=== PATIENT | male | born 1995 | race Two or more races ===

== ENCOUNTER 2020-12-11 18:20 | Emergency (ER) | payer SELFPAY ==
[~2020-12-11] VITALS: Ht 180.3 cm; Wt 111.5 kg
[2020-12-11 18:49] VITALS: BP 155/100
== END 2020-12-11 22:16 | disposition left against medical advice (07) ==
LOC: ER 18:20
DX: S51.812A Laceration without foreign body of left forearm, initial encounter (principal); Z53.21 Procedure and treatment not carried out due to patient leaving prior to being seen by health care provider; W54.0XXA Bitten by dog, initial encounter; Y93.89 Activity, other specified; Y92.89 Other specified places as the place of occurrence of the external cause; Y99.8 Other external cause status